=== PATIENT | female | born 1960 | race Caucasian/White ===

== ENCOUNTER 2018-05-17 11:48 | Outpatient (CLI) | payer MEDICAID ==
--- NOTE | 2018-05-17 13:16 | XRAY Report ---
Procedure Date: 05/17/2018 Accession Number: [id number] / [id number] Procedure: XR - Hip w/Pelvis 2-3V RT CPT Code: FULL RESULT: EXAM: Hip w/Pelvis 2-3V RT DATE: 05/17/2018 1:07 PM CLINICAL HISTORY: HIP PAIN RT COMPARISON: None. TECHNIQUE: 1 view of the pelvis and 1 view of the hip. FINDINGS: Bones: Normal. No fracture or bone lesion. Joints: Mild right hip osteoarthritis. Soft Tissues: Normal. No soft tissue swelling. IMPRESSION: Mild osteoarthritis. No evidence of acute fracture. RADIA
--- NOTE | 2018-05-17 13:16 | XRAY Report ---
Procedure Date: 05/17/2018 Accession Number: [id number] / [id number] Procedure: XR - Chest 2 View X-Ray CPT Code: 50746 FULL RESULT: EXAM: Chest 2 View X-Ray DATE: 05/17/2018 1:07 PM CLINICAL HISTORY: COUGH COMPARISON: 04/15/2015 TECHNIQUE: 2 views. FINDINGS: Lungs/Pleura: No focal opacities evident. No pneumothorax or pleural effusion. Normal volumes. Mediastinum: Heart and mediastinal contours are unremarkable. Other: None. IMPRESSION: Normal 2-view chest radiography. RADIA
== END 2018-05-17 11:49 | disposition home or self-care (01) ==
LOC: DI 11:48
PROVIDERS: ATTEND Physician Assistant Medical
DX: M25.551 Pain in right hip (principal); M16.11 Unilateral primary osteoarthritis, right hip; R05 Cough
CPT/HCPCS: 71046

== ENCOUNTER 2018-06-01 12:49 | Outpatient (CLI) | payer MEDICAID ==
--- NOTE | 2018-06-04 15:45 | Mammography Report ---
Procedure Date: 06/01/2018 Accession Number: [id number] / [id number] Procedure: TRU - Screening Mammo Dig Bilat CPT Code: FULL RESULT: EXAM: Screening Mammo Dig Bilat DATE: 06/01/2018 1:21 PM CLINICAL HISTORY: 57-year-old female with history of early menses and prior history of benign left breast biopsy in 2002 presents for screening. TECHNIQUE: Bilateral CC and MLO views were obtained. COMPARISON: 10/16/2014, 08/20/2013, 04/27/2010, 01/29/2009. FINDINGS: The breasts demonstrate diffuse fatty replacement bilaterally. Bilateral typically benign coarse calcifications and typically benign vascular calcifications are noted. Surgical clips are seen projecting over the left breast, benign finding. No suspicious masses, clustered microcalcifications, or regions of architectural distortion are identified. IMPRESSION: Benign findings RECOMMENDATION: Routine annual screening unless otherwise clinically indicated. BIRADS CATEGORY 2: Benign findings STANDARD QUALIFYING STATEMENTS: 1. This examination was reviewed with the aid of Computer-Aided Detection (CAD). 2. A negative or benign imaging report should not delay biopsy if clinically suspicious findings are present. Consider surgical consultation if warrented. More than 5% of cancers are not identified by imaging. 3. Dense breasts may obscure an underlying neoplasm.
== END 2018-06-01 12:50 | disposition home or self-care (01) ==
LOC: DI 12:49
PROVIDERS: ATTEND Physician Assistant Medical
DX: Z12.31 Encounter for screening mammogram for malignant neoplasm of breast (principal)
CPT/HCPCS: 77067

== ENCOUNTER 2018-06-01 12:50 | Outpatient (CLI) | payer MEDICAID ==
--- NOTE | 2018-06-01 16:35 | DEXA Report ---
Procedure Date: 06/01/2018 Accession Number: [id number] / [id number] Procedure: DEX - Dexa Spine and/or Hip CPT Code: FULL RESULT: EXAM: Dexa Spine and/or Hip DATE: 06/01/2018 1:43 PM CLINICAL HISTORY: ENC FOR SCREENING FOR OSTEOPOROSIS TECHNIQUE: Dual energy x-ray absorptiometry (DXA) was performed on a [employer] System. Regions measured are the AP Spine, femoral neck, and if needed forearm. COMPARISON: None. In accordance with the International Society for Clinical Densitometry (ISCD) guidelines, data from previous exams may be reanalyzed using current recommendations and techniques. This is done to allow a more accurate basis for comparison with the current study. FINDINGS: The data for the lumbar spine is as follows: BMD (g/cm/cm) T-SCORE Z-SCORE REGION L1 1.177 0.4 0.4 L2 1.334 1.1 1.1 L3 1.191 -0.1 -0.1 L4 1.070 -1.1 -1.1 TOTAL 1.190 0.1 0.1 NOTE: All evaluable vertebrae are used for classification The data for the hip is as follows: BMD (g/cm/cm) T-SCORE Z-SCORE REGION Neck 0.805 -1.7 -1.2 TOTAL 0.887 -1.0 -0.9 NOTE: The femoral neck or total proximal femur, whichever is lowest, is used for classification. Please note that osteopenia by T score is identified in the femoral neck only. IMPRESSION: THE WHO CLASSIFICATION BASED ON THE INTERNATIONAL REFERENCE STANDARD IS OSTEOPENIA. THE FRACTURE RISK IS INCREASED. RECOMMENDATION: Patients with diagnosis of osteoporosis or osteopenia should have regular bone mineral density assessment. For those eligible for Medicare, routine testing is allowed once every 2 years. Testing frequency can be increased for patients who have rapidly progressing disease or for those who are receiving medical therapy to restore bone mass. COMMENT: World Health Organization (WHO) definitions for osteoporosis and osteopenia: NORMAL BMD: T-score at -1.0 or higher, fracture risk is low OSTEOPENIA BMD: T-score between -1.0 and -2.5, fracture risk is increased. OSTEOPOROSIS BMD: T-score at -2.5 or lower, fracture risk is high. National Osteoporosis Foundation recommends: 1. Obtain adequate dietary calcium (at least 1200 mg per day) and vitamin D (400-800 international units per day). 2. Participate, as appropriate, in regular weightbearing and muscle-strengthening exercise. 3. Avoid tobacco use and reduce alcohol and caffeine intake. 4. For more detailed information see the website at www.NOF.org.
== END 2018-06-01 12:51 | disposition home or self-care (01) ==
LOC: DI 12:50
PROVIDERS: ATTEND Physician Assistant Medical
DX: Z13.820 Encounter for screening for osteoporosis (principal); M85.88 Other specified disorders of bone density and structure, other site
CPT/HCPCS: 77080

== ENCOUNTER 2018-06-06 12:55 | Outpatient (CLI) | payer MEDICAID ==
--- NOTE | 2018-06-06 15:23 | Ultrasound Report ---
Procedure Date: 06/06/2018 Accession Number: [id number] / [id number] Procedure: US - Carotid Doppler Complete CPT Code: FULL RESULT: EXAM: Carotid Doppler Complete DATE: 06/06/2018 3:01 PM CLINICAL HISTORY: CAROTID ARTERY STENOSIS COMPARISON: 05/09/2014. TECHNIQUE: Real-time sonographic vascular imaging was performed by the worm farmer through the carotid arterial system with a linear transducer utilizing color-flow, Doppler flow and spectral analysis. Multiple bilingual sales representative static images were saved for review. FINDINGS: Right carotid system: A mild amount of plaque is seen in the proximal internal carotid artery by the bulb by grayscale ultrasound. There is mild intimal thickening throughout the carotid system. With the exception of likely mild narrowing of the distal right internal carotid artery, there is no hemodynamically significant stenosis with peak systolic velocities in centimeters per second as below. Expected low resistance arterial waveforms are seen throughout the system. Right common carotid (proximal, distal): 92, 70 Right external carotid artery: 83 Right carotid bulb: 38 Right internal carotid artery (proximal, mid, distal): 53, 65, 134 Antegrade flow is detected in the right vertebral artery. Please note that there is tortuosity in the distal right internal carotid artery. This likely artificially raises the impression of stenosis in the distal right internal carotid artery. Left carotid system: Mild intimal thickening and subjectively mild less than 50% plaque is seen in the left common carotid artery. There is no hemodynamically significant stenosis in the left common carotid system with peak systolic velocities in centimeters per second as below. Expected low resistance arterial waveforms are seen throughout the system. Left common carotid artery (proximal, distal): 77, 71 Left external carotid artery: 90 Left carotid bulb: 58 Left internal carotid artery (proximal, mid, distal): 67, 48, 68 Antegrade flow is seen in the left vertebral artery. IMPRESSION: Approximately 50% narrowing of the distal right internal carotid artery. Normal left internal carotid artery. Validated velocity measurements with angiographic measurements and velocity criteria are extrapolated from diameter data as defined by the Society of Radiologists in Ultrasound Consensus Conference Radiology 2003; 229;340-346. RADIA
== END 2018-06-06 12:56 | disposition home or self-care (01) ==
LOC: DI 12:55
PROVIDERS: ATTEND Physician Assistant Medical
DX: I65.21 Occlusion and stenosis of right carotid artery (principal)
CPT/HCPCS: 93880

== ENCOUNTER 2019-08-06 09:16 | Outpatient (CLI) | payer MEDICAID ==
--- NOTE | 2019-08-06 15:32 | XRAY Report ---
Reason: CERVICAL RADICULOPATHY, LUMBAR RADICULOPATHY Procedure Date: 08/06/2019 Accession Number: [id number] / [id number] Procedure: XRN - Cervical Spine 2 View CPT Code: FULL RESULT: EXAM: CERVICAL SPINE RADIOGRAPHY EXAM DATE: 08/06/2019 01:17 PM. CLINICAL HISTORY: Cervical radiculopathy, lumbar radiculopathy. COMPARISONS: LUMBAR SPINE 2 VIEW 05/24/2018 1:51 PM. TECHNIQUE: 3 views. FINDINGS: Alignment: Normal. No spondylolisthesis or scoliosis. Bones: The cervical vertebral bodies and posterior elements are well visualized from the skull base through C5-C6. No fractures or bone lesions. Disks: There is mild multilevel narrowing of the disk space heights, most pronounced at C4-C5 and C5-C6. Facets: Frontal view is suggestive of mild multilevel facet arthropathy with lateral mass hypertrophy. Soft Tissues: Normal. No prevertebral soft tissue swelling. The visualized lung apices are clear. IMPRESSION: Degenerative changes. If clinical examination is consistent with nerve root compression, MRI would be appropriate. RADIA
--- NOTE | 2019-08-09 14:10 | XRAY Report ---
Reason: CERVICAL RADICULOPATHY, LUMBAR RADICULOPATHY Procedure Date: 08/06/2019 Accession Number: [id number] / [id number] Procedure: XRN - Lumbar Spine 2 View CPT Code: FULL RESULT: EXAM: LUMBOSACRAL SPINE RADIOGRAPHY EXAM DATE: 08/06/2019 01:25 PM. CLINICAL HISTORY: Cervical radiculopathy, lumbar radiculopathy. COMPARISONS: CERVICAL SPINE 2 VIEW 08/06/2019 1:17 PM. TECHNIQUE: 3 views. FINDINGS: Examination is limited by underpenetration. Alignment: Normal. No spondylolisthesis or scoliosis. Bones: Five [id number] lumbar vertebral bodies are present. No fractures or bone lesions. Disks: Disk space heights are generally preserved with the exception of L5-S1, where there is loss of height and sclerosis at the endplate. Facets: There is moderate facet arthropathy at L5-S1 with question of irregularity about the pars interarticularis. No listhesis is detected. Sacroiliac Joints: Unremarkable. Soft Tissues: Normal. The visualized bowel gas pattern is normal. IMPRESSION: Lower lumbar spine degenerative changes potentially due to pars interarticularis defect as described. RADIA
== END 2019-08-06 09:17 | disposition home or self-care (01) ==
LOC: DI.N 09:16
PROVIDERS: ATTEND Physician Assistant Medical
DX: M50.121 Cervical disc disorder at C4-C5 level with radiculopathy (principal); M51.17 Intervertebral disc disorders with radiculopathy, lumbosacral region; M47.27 Other spondylosis with radiculopathy, lumbosacral region
CPT/HCPCS: 72040; 72100

== ENCOUNTER 2019-08-30 09:45 | Outpatient (CLI) | payer MEDICAID ==
[2019-08-30 19:18] LABS: H. PYLORIS ANTIGEN STL NEGATIVE (Negative)
== END 2019-08-30 23:59 | disposition home or self-care (01) ==
LOC: LAB.R 09:45
PROVIDERS: ATTEND Physician Assistant Medical
DX: R19.7 Diarrhea, unspecified (principal)
CPT/HCPCS: 81599; 83630; 87045; 87046; 87177; 87209; 87338; 87493

== ENCOUNTER 2020-01-22 12:21 | Outpatient (CLI) | payer MEDICAID ==
--- NOTE | 2020-01-23 09:02 | Mammography Report ---
Reason: ROUTINE MAMMO Procedure Date: 01/22/2020 Accession Number: [id number] / [id number] Procedure: MGN - Screening Mammo w/Teo CPT Code: Final Report FULL RESULT: EXAM: Screening Mammo w/Teo DATE: 01/22/2020 1:10 PM CLINICAL HISTORY: Screening encounter. History of early menses. History of benign left breast biopsy in 2002. TECHNIQUE: (B) - Bilateral CC, laterally exaggerated CC, MLO views were obtained. COMPARISON: 06/01/2018 through 04/27/2010. PARENCHYMAL PATTERN: (A) - The breast(s) demonstrate(s) scattered fibroglandular densities. FINDINGS: Postsurgical changes in the left breast are stable. Typically benign vascular and coarse calcifications are redemonstrated. There are no suspicious masses, calcifications, or areas of distortion. IMPRESSION: Benign findings. BI-RADS category 2. RECOMMENDATION: (ANNUAL) - Recommend routine annual screening mammography. BI-RADS CATEGORY: (2) - Benign Findings. STANDARD QUALIFYING STATEMENTS: 1. This examination was not reviewed with the aid of Computer-Aided Detection (CAD). 2. A negative or benign imaging report should not preclude biopsy if clinically suspicious findings are present. 3. Dense breasts may obscure an underlying neoplasm. 4. This examination was reviewed with the aid of 3D breast imaging (tomosynthesis).
== END 2020-01-22 12:22 | disposition home or self-care (01) ==
LOC: DI.N 12:21
DX: Z12.31 Encounter for screening mammogram for malignant neoplasm of breast (principal)
CPT/HCPCS: 77063; 77067

== ENCOUNTER 2020-03-04 08:13 | Outpatient (CLI) | payer MEDICAID ==
--- NOTE | 2020-03-04 11:55 | Ultrasound Report ---
Reason: ABDOMINAL PAIN,RUQ Procedure Date: 03/04/2020 Accession Number: [id number] / [id number] Procedure: US - Chest CPT Code: Final Report FULL RESULT: EXAM: LIMITED RIGHT UPPER QUADRANT ULTRASOUND EXAM DATE: 03/04/2020 08:41 AM. CLINICAL HISTORY: Abdominal pain, right upper quadrant. COMPARISON: ABDOMEN/PELVIS W/O 09/12/2013 4:43 PM. TECHNIQUE: Focused ultrasound performed of the area of palpable concern in the right upper quadrant of the abdomen. FINDINGS: At the area of concern, there is a 6.3 x 3.4 x 1.5 cm solid-appearing mass, located cephalad to the gallbladder scar. Internal vascularity is seen. This is located within the deep subcutaneous tissue superficial to the abdominal wall musculature. This is in the same general location as a 2.6 x 5.0 x 10.3 cm fluid collection on remote comparison CT, although this finding had a uniform fluid-like appearance on the remote CT.. IMPRESSION: Solid-appearing mass in the deep subcutaneous tissue at the palpable area of concern. Although a fluid collection was seen on remote comparison at this location, the heterogeneity in current appearance internal vascularity suggest that this finding is indeterminate. Recommend consideration of histologic evaluation. RADIA
== END 2020-03-04 08:14 | disposition home or self-care (01) ==
LOC: DI 08:13
PROVIDERS: ATTEND Physician Assistant Medical
DX: R22.2 Localized swelling, mass and lump, trunk (principal)
CPT/HCPCS: 76604

== ENCOUNTER 2020-06-27 01:03 | Emergency (ER) | payer MEDICAID ==
--- NOTE | 2020-06-27 01:08 | ED Physician Documentation ---
History of Present Illness - Stated complaint Stated Complaint: F - History obtained from History obtained from: Patient (59-year-old female with a history of urinary tract infections presents with dysuria and burning on urination without fevers or flank pain.) Review of Systems Constitutional: reports: Reviewed and negative Eyes: reports: Reviewed and negative Ears: reports: Reviewed and negative Nose: reports: Reviewed and negative Throat: reports: Reviewed and negative Cardiac: reports: Reviewed and negative Respiratory: reports: Reviewed and negative GI: reports: Reviewed and negative : reports: Dysuria Skin: reports: Reviewed and negative Musculoskeletal: reports: Reviewed and negative Neurologic: reports: Reviewed and negative Psychiatric: reports: Reviewed and negative Endocrine: reports: Reviewed and negative Immunocompromised: reports: Reviewed and negative PD PAST MEDICAL HISTORY - Past Medical History Cardiovascular: Hypertension, High cholesterol Respiratory: Shortness of breath, Sleep apnea Neuro: None Endocrine/Autoimmune: Type 2 diabetes GI: Chronic diarrhea, Chronic constipation : None Psych: Other Musculoskeletal: Osteoarthritis, Fibromyalgia, Osteopenia Derm: None - Past Surgical History Past Surgical History: Yes General: Cholecystectomy /PAINTER TUMBLING BARREL: section, Hysterectomy HEENT: Other - Present Medications Home Medications: Ambulatory Orders Medication Instructions Recorded Confirmed Cholecalciferol (Vitamin D3) 10,000 unit PO ONCEDAILY 05/11/13 07/16/19 [Vitamin D] Insulin Glargine,Hum.rec.anlog 70 unit SQ DAILY 05/11/13 07/16/19 [Lantus] Insulin Lispro [Humalog] 5 - 10 unit SQ TID 05/11/13 07/16/19 glipiZIDE [Glucotrol] 10 mg PO BID 05/11/13 07/16/19 Lisinopril [Zestril] 10 mg PO BID 09/12/13 07/16/19 Promethazine [Phenergan] 25 mg PO Q6H PRN #20 tab 09/12/13 07/16/19 Rosuvastatin Calcium [Crestor] 5 mg PO DAILY 04/15/15 07/16/19 carvediloL [Carvedilol] 6.25 mg PO BID 04/15/15 07/16/19 Empagliflozin [Jardiance] 25 mg PO DAILY 06/08/19 07/16/19 Furosemide [Lasix] 80 mg PO DAILY 06/08/19 07/16/19 Gabapentin 600 mg PO TID 06/08/19 07/16/19 Potassium Chloride 10 meq PO DAILY 06/08/19 07/16/19 Aspirin [Aspirin EC] 162 mg PO DAILY 07/16/19 07/16/19 Calcium Carbonate/Vitamin D3 1 tab PO DAILY 07/16/19 07/16/19 [Calcium 500-Vit D3 400 Chew Tb] Fluticasone [Flonase] 1 sprays [place] BID 07/16/19 07/16/19 Ipratropium [place] 15 ml NS BID 07/16/19 07/16/19 Meclizine HCl [Motion Sickness 25 mg PO TID PRN 07/16/19 07/16/19 Relief] Multivitamin [Multivitamins] 1 each PO DAILY 07/16/19 07/16/19 Phenazopyridine HCl [Pyridium] 100 mg PO DAILY PRN 07/16/19 07/16/19 Cephalexin [Keflex] 500 mg PO BID 7 Days #14 capsule 06/27/20 - Allergies Allergies/Adverse Reactions: Allergies Allergy/AdvReac Type Severity Reaction Status Date / Time ciprofloxacin [From Cipro] Allergy Intermediate Rash Verified 06/27/20 01:18 iodine Allergy Mild Rash Verified 06/27/20 01:18 alendronate sodium Allergy Unknown Verified 06/27/20 01:18 [From Fosamax] amoxicillin [From Augmentin] Allergy Unknown Verified 06/27/20 01:18 clavulanic acid Allergy Unknown Verified 06/27/20 01:18 [From Augmentin] liraglutide [From Victoza] Allergy Unknown Verified 06/27/20 01:18 nitrofurantoin Allergy Unknown Verified 06/27/20 01:18 [From Macrobid] Ajjasar-Uvg-Lyp Reductase Allergy Unknown Verified 06/27/20 01:18 Inhibitor azithromycin [From Zithromax] AdvReac Intermediate Emesis Verified 06/27/20 01:18 codeine [Codeine] AdvReac Intermediate Nausea Verified 06/27/20 01:18 metformin HCl * AdvReac Intermediate Emesis Verified 06/27/20 01:18 [From Glucophage] iv dye Allergy Unknown Uncoded 06/27/20 01:18 - Social History Does the pt smoke?: No Smoking Status: Former smoker Does the pt drink ETOH?: No Does the pt have substance abuse?: No - Immunizations Immunizations are current?: Yes PD ED PE NORMAL - Vitals Vital signs reviewed: Yes - General General: Alert and oriented X 3, No acute distress, Well developed/nourished - HEENT HEENT: PERRL - Neck Neck: Supple, no meningeal sign - Cardiac Cardiac: RRR, No murmur, Strong equal pulses - Respiratory Respiratory: No respiratory distress, Clear bilaterally - Abdomen Abdomen: Normal bowel sounds, Soft, Non tender, Non distended, No organomegaly - Back Back: No CVA TTP, No spinal TTP - Derm Derm: Normal color, Warm and dry, No rash - Extremities Extremities: No deformity - Neuro Neuro: Alert and oriented X 3, 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 CLOUDY Urine pH 6.0 Ur Specific [place] 1.015 Urine Protein 100 H Urine Glucose (UA) >=1000 H Urine Ketones NEGATIVE Urine Occult Blood MODERATE H Urine Nitrite NEGATIVE Urine Bilirubin NEGATIVE Urine Urobilinogen 0.2 (NORMAL) Ur Leukocyte Esterase SMALL H Ur Microscopic Review INDICATED Urine Culture Comments Not Reportable PD MEDICAL DECISION MAKING - ED course Complexity details: considered differential (History and urinalysis are consistent with acute cystitis patient has been treated previously with Keflex will initiate treatment with Keflex.) Departure - Departure Disposition: 01 Home, Self Care Clinical Impression: Cystitis Condition: Stable Instructions: ED UTI Cystitis Female Follow-Up: Ronit Samano PA-C [Primary Care Provider] - Tomorrow Prescriptions: Cephalexin [Keflex] 500 mg PO BID 7 Days #14 capsule Comments: Take antibiotics as directed. Follow-up with your primary care provider on Monday for a recheck.
[2020-06-27 01:19] LABS: BILIRUBIN,URINE NEGATIVE (NEGATIVE); GLUCOSE, URINE (UA) >=1000 mg/dL (NEGATIVE); KETONES,URINE (UA) NEGATIVE (NEGATIVE); LEUKOCYTE ESTERASE, URINE SMALL (NEGATIVE); NITRITE,URINE NEGATIVE (NEGATIVE); OCCULT BLOOD,URINE MODERATE (NEGATIVE); PROTEIN,URINE 100 mg/dL (NEGATIVE); UROBILINOGEN,URINE 0.2 (NORMAL) E.U./dL (NORMAL)
[2020-06-27 01:22] LABS: CLARITY,URINE SL. CLOUDY (CLEAR)
[2020-06-27] MEDS ORDERED: cephALEXin 250 MG CAPSULE PO STA (01:30)
[2020-06-27 01:33] LABS: BACTERIA,URINE Few /HPF (None Seen); SQUAMOUS EPITHELIAL CELL,UR RARE Squamous (<= Few); YEAST,URINE PRESENT
[2020-06-27 01:40] VITALS: BP 137/76
== END 2020-06-27 01:39 | disposition home or self-care (01) ==
LOC: ED 01:03
DX: N30.90 Cystitis, unspecified without hematuria (principal); I10 Essential (primary) hypertension; E11.9 Type 2 diabetes mellitus without complications; Z79.4 Long term (current) use of insulin; Z79.82 Long term (current) use of aspirin; Z87.891 Personal history of nicotine dependence
CPT/HCPCS: 81001; 87086; 99283; A9270; 81003

== ENCOUNTER 2020-07-01 08:00 | Outpatient (CLI) | payer MEDICAID | END 2020-07-01 23:59 | disposition home or self-care (01) | LOC: LAB.R 08:00 | PROVIDERS: ATTEND Family Medicine | DX: N39.0 Urinary tract infection, site not specified (principal) | CPT/HCPCS: 87086 ==

== ENCOUNTER 2020-07-20 10:48 | Outpatient (CLI) | payer MEDICAID | END 2020-07-20 10:49 | disposition EMS.NT | LOC: EMS 10:48 | PROVIDERS: ATTEND Surgery | DX: M54.2 Cervicalgia (principal); V49.40XA Driver injured in collision with unspecified motor vehicles in traffic accident, initial encounter; Y92.414 Local residential or business street as the place of occurrence of the external cause ==

== ENCOUNTER 2020-07-23 12:28 | Outpatient (CLI) | payer MEDICAID ==
--- NOTE | 2020-07-23 16:12 | XRAY Report ---
PROCEDURE: Cervical Spine 2 View INDICATIONS: CERVICAL RADICULOPATHY TECHNIQUE: 4 view(s) of the cervical spine were acquired. COMPARISON: None. FINDINGS: Bones: No fractures or dislocations to the C7-T1 level. There is straightening of normal cervical l ordosis with degenerative endplate changes noted at C4-5 and C5-6 levels. The lateral masses of C1 ap pear intact on the odontoid view. No suspicious bony lesions. Soft tissues: No prevertebral soft tissue swelling. IMPRESSION: Degenerative disc disease at C4-5 and C5-6 levels. No compression fracture or spondyloli sthesis. Reviewed by: Catracho Freeman MD on 07/23/2020 4:10 PM PDT Approved by: Catracho Freeman MD on 07/23/2020 4:10 PM PDT Station ID: [id number]
== END 2020-07-23 12:29 | disposition home or self-care (01) ==
LOC: DI 12:28
PROVIDERS: ATTEND Family Medicine
DX: M50.321 Other cervical disc degeneration at C4-C5 level (principal)
CPT/HCPCS: 72040

== ENCOUNTER 2020-08-04 16:45 | Outpatient (CLI) | payer MEDICAID | END 2020-08-04 16:46 | disposition critical access hospital (66) | LOC: EMS 16:45 | PROVIDERS: ATTEND Surgery | DX: R41.82 Altered mental status, unspecified (principal) | CPT/HCPCS: A0425; A0427; A0999 ==

== ENCOUNTER 2020-08-04 17:06 | Emergency (ER) | payer MEDICAID ==
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
[2020-08-04] MEDS ORDERED: DEXTROSE 10% 1,000 ML IV STA (17:20)
[2020-08-04] MEDS ORDERED: KETOROLAC 15 MG/ML VIAL IVP STA (17:22)
[2020-08-04 17:40] LABS: BASOPHILS # (AUTO) 0.1 10^3/uL (0.0-0.1); BASOPHILS % (AUTO) 0.7 %; EOSINOPHILS # (AUTO) 0.1 10^3/uL (0.0-0.7); EOSINOPHILS % (AUTO) 1.7 %; HGB - HEMOGLOBIN 12.2 g/dL (12.0-16.0); LYMPHOCYTES # (AUTO) 1.3 10^3/uL (1.5-3.5); LYMPHOCYTES % (AUTO) 17.1 %; MEAN CORPUSCULAR HEMOGLOBIN 32.8 pg (27.0-31.0); MEAN CORPUSCULAR HGB CONC 33.5 g/dL (32.0-36.0); MEAN CORPUSCULAR VOLUME 97.8 fL (81.0-99.0); MEAN PLATELET VOLUME 9.6 fL (7.9-10.8); MONOCYTES # (AUTO) 0.5 10^3/uL (0.0-1.0); NEUTROPHILS # (AUTO) 5.6 10^3/uL (1.5-6.6); NEUTROPHILS % (AUTO) 73.2 %; PLT - PLATELET COUNT 154 10^3/uL (130-450); RED BLOOD COUNT 3.72 10^6/uL (4.20-5.40); RED CELL DISTRIBUTION WIDTH 12.6 % (12.0-15.0); WHITE BLOOD COUNT 7.6 x10^3/uL (4.8-10.8)
--- NOTE | 2020-08-04 17:49 | XRAY Report ---
PROCEDURE: Chest 1 View X-Ray INDICATIONS: cough TECHNIQUE: One view of the chest was acquired. COMPARISON: None available FINDINGS: Surgical changes and devices: Left breast lobectomy change. Surgical clips in the gallbladder fossa. Lungs and pleura: No pleural effusions or pneumothorax. Lungs demonstrate bilateral perihilar peribr onchial thickening with mild alveolar opacity in the infrahilar region on the right. Mediastinum: Mediastinal contours appear normal. Heart size is mildly enlarged. Bones and chest wall: No suspicious bony lesions. Overlying soft tissues appear unremarkable. IMPRESSION: 1. Mild cardiomegaly. 2. Changes of mild bronchitis, acute or chronic. Reviewed by: Paula Miller MD on 08/04/2020 4:47 PM AKDT Approved by: Paula Miller MD on 08/04/2020 4:47 PM AKCATA Station ID: [id number]
[2020-08-04 17:55] LABS: ALBUMIN 3.9 g/dL (3.2-5.5); ALBUMIN/GLOBULIN RATIO 1.2 (1.0-2.2); ALKALINE PHOSPHATASE 33 IU/L (42-121); ALT ALANINE AMINOTRANSFERASE 28 IU/L (10-60); AST ASPARTATE AMINOTRANSFERASE 28 IU/L (10-42); BILIRUBIN,TOTAL 0.5 mg/dL (0.2-1.0); BUN - BLOOD UREA NITROGEN 23 mg/dL (6-20); CALCIUM 9.5 mg/dL (8.5-10.3); CARBON DIOXIDE - CO2 29 mmol/L (21-32); CHLORIDE 98 mmol/L (101-111); CREATININE 0.7 mg/dL (0.4-1.0); GLUCOSE 84 mg/dL (70-100); LIPASE 30 U/L (22-51); SODIUM 138 mmol/L (135-145); TOTAL PROTEIN 7.2 g/dL (6.7-8.2)
--- NOTE | 2020-08-04 17:59 | CT Report ---
PROCEDURE: HEAD WO INDICATIONS: headache worse today; feels foggy TECHNIQUE: Noncontrast 4.5 mm thick angled axial sections acquired from the foramen magnum to the vertex. For r adiation dose reduction, the following was used: automated exposure control, adjustment of mA and/or kV according to patient size. COMPARISON: None FINDINGS: Image quality: Excellent. CSF spaces: Basal cisterns are patent. No extra-axial fluid collections. The ventricles are symmet charo in size and shape. Brain: No intracranial bleeds or masses. There is cerebral volume loss for age, with resultant vent ricular and sulcal prominence. There are periventricular and deep white matter chronic small vessel ischemic changes. There is intracranial internal carotid artery atherosclerosis. Skull and face: Calvarium and visualized facial bones appear intact, without suspicious lesions. Inj ection involving the left ocular globe. Sinuses: Visualized sinuses and mastoids are clear. IMPRESSION: No acute intracranial disease process. Reviewed by: Lucero Fontaine MD, PhD on 08/04/2020 5:58 PM PDT Approved by: Lucero Fontaine MD, PhD on 08/04/2020 5:58 PM PDT Station ID: [id number]
[2020-08-04 18:15] LABS: BILIRUBIN,URINE NEGATIVE (NEGATIVE); GLUCOSE, URINE (UA) NEGATIVE (NEGATIVE); KETONES,URINE (UA) NEGATIVE (NEGATIVE); LEUKOCYTE ESTERASE, URINE SMALL (NEGATIVE); NITRITE,URINE NEGATIVE (NEGATIVE); OCCULT BLOOD,URINE TRACE-INTA (NEGATIVE); PH,URINE 5.5 PH (5.0-7.5); PROTEIN,URINE NEGATIVE (NEGATIVE); UROBILINOGEN,URINE 0.2 (NORMAL) E.U./dL (NORMAL)
[2020-08-04 18:17] LABS: CLARITY,URINE HAZY (CLEAR)
[2020-08-04 18:27] LABS: BACTERIA,URINE Rare /HPF (None Seen); RBC,URINE 0-5 /HPF (0-5); SQUAMOUS EPITHELIAL CELL,UR RARE Squamous (<= Few); WBC CLUMPS,URINE PRESENT
[2020-08-04] MEDS ORDERED: cefTRIAXone 1 GM VIAL IVP STA (18:59)
[2020-08-04] MEDS ORDERED: DOXYCYCLINE 100 MG TABLET PO STA (18:59)
[2020-08-04 21:38] VITALS: BP 136/82
== END 2020-08-04 21:37 | disposition home or self-care (01) ==
LOC: EDUNIT# → ED 17:06
DX: E16.2 Hypoglycemia, unspecified (principal); J20.9 Acute bronchitis, unspecified; R51 Headache; E11.9 Type 2 diabetes mellitus without complications; Z79.4 Long term (current) use of insulin; R60.9 Edema, unspecified; Z79.82 Long term (current) use of aspirin
CPT/HCPCS: 36415; 70450; 71045; 80053; 80320; 81001; 83605; 83690; 83735; 84443; 85025; 87086; 93005; 96365; 96375; 99284; A9270; 81003

== ENCOUNTER 2020-08-25 19:25 | Emergency (ER) | payer MEDICAID ==
[2020-08-25] MEDS ORDERED: CLINDAMYCIN 150 MG CAPSULE PO STA (20:11)
[2020-08-25] MEDS ORDERED: BACITRACIN ZINC OINT 1 PACKET TOP STA (20:13)
--- NOTE | 2020-08-25 20:14 | ED Physician Documentation ---
History of Present Illness - Stated complaint Stated Complaint: LT CALF BLISTER - Chief complaint Chief Complaint: Wound - History obtained from History obtained from: Patient - History of Present Illness Timing: How many weeks ago (2+) - Additonal information Additional information: 59-year-old female presents to the emergency department for evaluation of a left calf wound. She reports that on August 07, 2020 she developed a very large blister on the back of her calf. The blister was ruptured and it drained clear fluid. She has been placing mupirocin on it. Patient states that she was on doxycycline for bronchitis for 1 week. That prescription ended August 11. Since then patient reports that the area on the back of her leg has gotten progressively larger and erythematous as well as tender to touch. She denies any fevers. She is a diabetic. Her blood sugars range from the 80s to the 190s Review of Systems Constitutional: reports: Reviewed and negative Ears: reports: Reviewed and negative Nose: reports: Reviewed and negative Cardiac: reports: Reviewed and negative Respiratory: reports: Reviewed and negative GI: reports: Reviewed and negative Skin: reports: Lesions (left posterior calf wound 5X4 cm.) PD PAST MEDICAL HISTORY - Past Medical History Cardiovascular: None Respiratory: None Neuro: None Endocrine/Autoimmune: Type 2 diabetes GI: None : None Psych: Other Musculoskeletal: Osteoarthritis, Fibromyalgia, Osteopenia Derm: None - Past Surgical History Past Surgical History: Yes General: 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, Hysterectomy HEENT: Other - Present Medications Home Medications: Ambulatory Orders Medication Instructions Recorded Confirmed Cholecalciferol (Vitamin D3) 10,000 unit PO ONCEDAILY 05/11/13 07/16/19 [Vitamin D] Insulin Glargine,Hum.rec.anlog 70 unit SQ DAILY 05/11/13 07/16/19 [Lantus] Insulin Lispro [Humalog] 5 - 10 unit SQ TID 05/11/13 07/16/19 glipiZIDE [Glucotrol] 10 mg PO BID 05/11/13 07/16/19 Lisinopril [Zestril] 10 mg PO BID 09/12/13 07/16/19 Promethazine [Phenergan] 25 mg PO Q6H PRN #20 tab 09/12/13 07/16/19 Rosuvastatin Calcium [Crestor] 5 mg PO DAILY 04/15/15 07/16/19 carvediloL [Carvedilol] 6.25 mg PO BID 04/15/15 07/16/19 Empagliflozin [Jardiance] 25 mg PO DAILY 06/08/19 07/16/19 Furosemide [Lasix] 80 mg PO DAILY 06/08/19 07/16/19 Gabapentin 600 mg PO TID 06/08/19 07/16/19 Potassium Chloride 10 meq PO DAILY 06/08/19 07/16/19 Aspirin [Aspirin EC] 162 mg PO DAILY 07/16/19 07/16/19 Calcium Carbonate/Vitamin D3 1 tab PO DAILY 07/16/19 07/16/19 [Calcium 500-Vit D3 400 Chew Tb] Fluticasone [Flonase] 1 sprays MARIA DEL CARMEN BID 07/16/19 07/16/19 Ipratropium [place] 15 ml NS BID 07/16/19 07/16/19 Meclizine HCl [Motion Sickness 25 mg PO TID PRN 07/16/19 07/16/19 Relief] Multivitamin [Multivitamins] 1 each PO DAILY 07/16/19 07/16/19 Phenazopyridine HCl [Pyridium] 100 mg PO DAILY PRN 07/16/19 07/16/19 Cephalexin [Keflex] 500 mg PO BID 7 Days #14 capsule 06/27/20 Doxycycline Hyclate 100 mg PO BID #14 tablet 08/04/20 Clindamycin HCl [Clindamycin 150MG 450 mg PO TID 10 Days #90 capsule 08/25/20 CAP] - Allergies Allergies/Adverse Reactions: Allergies Allergy/AdvReac Type Severity Reaction Status Date / Time ciprofloxacin [From Cipro] Allergy Intermediate Rash Verified 08/25/20 19:48 iodine Allergy Mild Rash Verified 08/25/20 19:48 alendronate sodium Allergy Unknown Verified 08/25/20 19:48 [From Fosamax] amoxicillin [From Augmentin] Allergy Unknown Verified 08/25/20 19:48 clavulanic acid Allergy Unknown Verified 08/25/20 19:48 [From Augmentin] liraglutide [From Victoza] Allergy Unknown Verified 08/25/20 19:48 nitrofurantoin Allergy Unknown Verified 08/25/20 19:48 [From Macrobid] Alpsfls-Puf-Qov Reductase Allergy Unknown Verified 08/25/20 19:48 Inhibitor azithromycin [From Zithromax] AdvReac Intermediate Emesis Verified 08/25/20 19:48 codeine [Codeine] AdvReac Intermediate Nausea Verified 08/25/20 19:48 metformin HCl * AdvReac Intermediate Emesis Verified 08/25/20 19:48 [From Glucophage] iv dye Allergy Unknown Uncoded 08/25/20 19:48 - Social History Does the pt smoke?: No Smoking Status: Former smoker Does the pt drink ETOH?: No Does the pt have substance abuse?: No - Immunizations Immunizations are current?: Yes - POLST Patient has POLST: No PD ED PE EXPANDED - General General: Alert, No acute distress, Other (obese) - Cardiac Cardiac: Regular Rate, Regular Rhythm, Pedal strong equal, Cap refill < 2 sec. No: Radial strong equal - Respiratory Respiratory: Clear to ausultation miranda. No: Distress, Labored - Abdomen Abdomen: Normal Bowel sounds. No: Tender to palpation - Extremities Extremities: Left leg (4X5 cm area sueprficial ulceration/epidermal loss. Surrounding erythema. Both calfs equally swollen) Results - Vitals Vitals: Vital Signs - 24 hr 08/25/20 19:45 Temperature 36.5 C Heart Rate 78 Respiratory 17 Rate Blood Pressure 182/65 H O2 Saturation 96 Oxygen O2 Source Room air PD MEDICAL DECISION MAKING - ED course Complexity details: reviewed results, re-evaluated patient, considered differential, d/w patient ED course: 59-year-old diabetic female presents to the emergency department for a 4 x 5 cm circular ulceration on the back of her left calf that initially began August 07 as a large fluid-filled blister. She did complete a course of doxycycline August 11. However over the last 3 to 4 days the area of erythema surrounding the ulceration has gotten much larger and her leg is more tender. She does have multiple antibiotic allergies. I will start her on clindamycin 450 mg 3 times a day for the next 10 days. Patient is to ask for a wound referral through her primary care provider. She was advised that if the erythema does not improve markedly over the next 48 hours to return to the ER for a second look. 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 insulin use: unspecified skilled nursing insulin use status Diabetes mellitus complication status: with skin complications Diabetes mellitus complication detail: with other skin ulcer Qualified Code(s): E11.622 - Type 2 diabetes mellitus with other skin ulcer; L98.499 - Non-pressure chronic ulcer of skin of other sites with unspecified severity Condition: Stable Record reviewed to determine appropriate education?: Yes Instructions: Cellulitis Dc Prescriptions: Clindamycin HCl [Clindamycin 150MG CAP] 450 mg PO TID 10 Days #90 capsule Comments: Oxana the ulcer on the back of your leg certainly looks infected at this point. I have given you your first dose of clindamycin here in the emergency department. Tomorrow morning please fill the prescription and begin taking as directed. Please elevate your leg as much as you can at night to help with swelling. If despite the antibiotics you have increased redness, swelling pain or develop any fevers you must return to the emergency department.
[2020-08-25 20:53] VITALS: BP 161/74
[2020-08-25] MEDS ORDERED: HYDROcod/ACET 5/325 Prepack 4 PO STA (21:04)
== END 2020-08-25 21:10 | disposition home or self-care (01) ==
LOC: ED 19:25
DX: L03.116 Cellulitis of left lower limb (principal); E11.622 Type 2 diabetes mellitus with other skin ulcer; L97.229 Non-pressure chronic ulcer of left calf with unspecified severity; Z79.4 Long term (current) use of insulin; Z87.891 Personal history of nicotine dependence; E66.9 Obesity, unspecified
CPT/HCPCS: 87070; 87205; 99282; 99283; A9270

== ENCOUNTER 2020-09-16 16:51 | Outpatient (CLI) | payer MEDICAID ==
--- NOTE | 2020-09-17 08:53 | Ultrasound Report ---
PROCEDURE: Duplex Lwr Ext Arterial Bilat INDICATIONS: PERIPHERAL ARTERY DISEASE TECHNIQUE: Color and pulse Doppler interrogation was performed of both lower extremity arterial systems, with im age documentation. COMPARISON: FINDINGS: Right lower extremity: Common femoral artery: 101 cm/sec, with biphasic flow. Deep femoral artery: 74 cm/sec, with biphasic flow. Proximal superficial femoral artery: 132 cm/sec, with biphasic flow. Mid superficial femoral artery: 102 cm/sec, with biphasic flow. Distal superficial femoral artery: 104 cm/sec, with biphasic flow. Popliteal artery: 90 cm/sec, with biphasic flow. Posterior tibial artery: 106 cm/sec, with biphasic flow. Anterior tibial artery/dorsalis pedis: 109/95 cm/sec, with biphasic flow. Bowers-scale imaging description: Mixed mild plaque formation throughout the right lower extremity with no focal significant stenosis. Left lower extremity: Common femoral artery: 149 cm/sec, with biphasic flow. Deep femoral artery: 73 cm/sec, with biphasic flow. Proximal superficial femoral artery: 130 cm/sec, with triphasic flow. Mid superficial femoral artery: 129 cm/sec, with triphasic flow. Distal superficial femoral artery: 75 cm/sec, with biphasic flow. Popliteal artery: 228 cm/sec, with monophasic flow. Posterior tibial artery: 103 cm/sec, with biphasic flow. Anterior tibial artery/dorsalis pedis: 103/120 cm/sec, with triphasic flow. Bowers-scale imaging description: Moderate to severe stenosis secondary to atherosclerotic plaque in t he left popliteal artery and in the left profunda femoris IMPRESSION: Hemodynamically significant moderate to severe stenosis in the left popliteal artery. Hemodynamically significant moderate stenosis in the left profunda femoris near the origin. Mild to moderate narrowing in the right profunda femoris. Consider CT angiography of the abdomen and pelvis with runoff to the lower extremities to evaluate f or potential aortic or iliac inflow disease as well as to more fully characterize the lower extremity stenoses. Reviewed by: Maicol Palafox MD on 09/17/2020 8:51 AM PST Approved by: Maicol Palafox MD on 09/17/2020 8:51 AM PST Station ID: [id number]
== END 2020-09-16 16:52 | disposition home or self-care (01) ==
LOC: DI 16:51
PROVIDERS: ATTEND Family Medicine
DX: I70.202 Unspecified atherosclerosis of native arteries of extremities, left leg (principal); I70.201 Unspecified atherosclerosis of native arteries of extremities, right leg
CPT/HCPCS: 93925

== ENCOUNTER 2020-10-05 16:15 | Outpatient (CLI) | payer MEDICAID ==
[2020-10-05] MEDS ORDERED: IOVERSOL 320 100 ML VIAL IVP ONE ×2 (17:01→18:34)
--- NOTE | 2020-10-06 08:39 | CT Report ---
PROCEDURE: ANGIO ABD RUNOFF W/WO - B/L INDICATIONS: PERIPHERAL ARTERY DISEASE CONTRAST: IV CONTRAST: Optiray 320 ml: 140 PO CONTRAST: *NO PO CONTRAST TECHNIQUE: After the administration of intravenous contrast, 2 and 5 mm sections acquired from T12 to the feet, with optional delayed image acquisition from the knees to the feet. 3-dimensional maximum intensity projection (MIP) coronal and sagittal reformats, and/or 3-dimensional volume rendering reformatting w as then performed. For radiation dose reduction, the following was used: automated exposure control , adjustment of mA and/or kV according to patient size. COMPARISON: None. FINDINGS: Image quality: Excellent. Extravascular tissues: Lung bases are clear. Heart size is normal. Liver and spleen are normal in size and enhancement. Gallbladder is surgically absent Biliary system is non dilated. Pancreas enh ances normally. No adrenal nodules. Kidneys are normal in size and enhancement, without hydronephro sis. Non opacified bowel loops demonstrate normal wall thickness and enhancement. No free fluid or air. No retroperitoneal or mesenteric adenopathy. No ventral hernias. Bladder wall thickness is no rmal. Bladder is distended. Uterus is surgically absent. No inguinal hernias or adenopathy. No susp icious bony lesions. No vertebral body compression fractures. Abdominal aorta: Normal caliber. Mild atherosclerotic plaque. Moderate celiac stenosis. Mild SMA janusz notic disease. Mild to moderate HANNA stenosis. Patent renal arteries. Right lower extremity: Common iliac and external iliac are widely patent. Mild SFA disease without s tenosis. Popliteal is patent. Three-vessel runoff. Left lower extremity: Common iliac and external iliac are patent. Mild SFA disease without hemodynam ically significant stenosis. Focal moderate geniculate popliteal stenosis. Three-vessel runoff. IMPRESSION: 1. No evidence of aortoiliac stenotic disease. 2. Right lower extremity runoff demonstrates mild plaque without hemodynamically significant stenosis in 3 runoff vessels. 3. Left lower extremity runoff demonstrates a moderate, 50% today, popliteal stenosis. There is three -vessel runoff. No other hemodynamically significant stenoses. 4. Visceral vessels demonstrate moderate celiac stenosis, mild SMA stenotic disease, and mild to mode rate HANNA stenosis. Reviewed by: Bharat Villegas MD on 10/06/2020 8:38 AM RUST Approved by: Bharat Villegas MD on 10/06/2020 8:38 AM PST Station ID: [id number]
== END 2020-10-05 16:16 | disposition home or self-care (01) ==
LOC: LAB 16:15
PROVIDERS: ATTEND Family Medicine
DX: I73.9 Peripheral vascular disease, unspecified (principal)
CPT/HCPCS: 75635; 82565; Q9967; 36415

== ENCOUNTER 2020-10-09 11:40 | Outpatient (CLI) | payer MEDICAID ==
[2020-10-09 18:14] LABS: CREATININE,URINE 54.7 mg/dL; MICROALBUM/CREATININE RATIO,UR 345.5 ug/mg (<30.0); MICROALBUMIN,URINE 18.9 mg/dL (0-300.0)
[2020-10-09 18:31] LABS: CALCIUM 8.9 mg/dL (8.5-10.3); CREATININE 0.8 mg/dL (0.4-1.0)
[2020-10-09 20:52] LABS: HEMOGLOBIN A1c% 8.4 % (4.27-6.07)
== END 2020-10-09 11:41 | disposition home or self-care (01) ==
LOC: LAB.N 11:40
PROVIDERS: ATTEND Physician Assistant Medical
DX: E11.65 Type 2 diabetes mellitus with hyperglycemia (principal)
CPT/HCPCS: 36415; 80048; 82043; 82570; 83036

== ENCOUNTER 2020-10-14 08:00 | Outpatient (CLI) | payer MEDICAID ==
--- NOTE | 2020-10-14 15:04 | XRAY Report ---
PROCEDURE: Chest 2 View X-Ray INDICATIONS: GAMINO TECHNIQUE: 2 view(s) of the chest. COMPARISON: None. FINDINGS: Surgical changes and devices: None. Lungs and pleura: No pleural effusions or pneumothorax. Lungs are clear. Mediastinum: Mediastinal contours are normal. Heart size is normal. The aorta has atherosclerotic c alcifications. Bones and chest wall: No suspicious bony abnormalities. Soft tissues appear unremarkable. IMPRESSION: No acute cardiopulmonary abnormality. Reviewed by: Grant Newton on 10/14/2020 3:[address] [facility] Approved by: Grant Newton on 10/14/2020 3:[address] [facility] Station ID: [id number]
== END 2020-10-14 23:59 | disposition home or self-care (01) ==
LOC: DI.WCP 08:00
PROVIDERS: ATTEND Physician Assistant Medical
DX: R06.09 Other forms of dyspnea (principal)

== ENCOUNTER 2021-02-08 12:25 | Outpatient (CLI) | payer MEDICAID ==
--- NOTE | 2021-02-09 11:39 | Mammography Report ---
BILATERAL DIGITAL SCREENING MAMMOGRAM 3D/2D: 02/08/2021 CLINICAL: Routine screening. Comparison is made to exams dated: 01/22/2020 mammogram, 06/01/2018 mammogram, 10/16/2014 mammogram, mammogram, and 08/20/2013 ultrasound - [facility]. There are scattered fibr oglandular elements in both breasts. There are benign calcifications in both breasts. There also are benign vascular calcifications in lidia th breasts. Additionally, there are benign post operative findings in the left breast. No significant masses, calcifications, or other findings are seen in either breast. There has been no significant interval change. IMPRESSION: BENIGN There is no mammographic evidence of malignancy. A 1 year screening mammogram is recommended. This exam was interpreted at Station ID: [id number]. NOTE: For mammograms, a report in lay terms will be sent to the patient. Approximately 15% of breast malignancies will not be visualized mammographically. In the management of a palpable breast mass, a negative mammogram must not discourage biopsy of a clinically suspicious lesion. Electronically Signed By: Xander Ferrara M.D. [email or web address]:02/08/2021 16:33:38 ACR BI-RADS Category 2: Benign Finding(s) 3342F PARENCHYMAL PATTERN: (A) - The breast(s) demonstrate(s) scattered fibroglandular densities. BI-RADS CATEGORY: (2) - 2 RECOMMENDATION: (ANNUAL) - Recommend routine annual screening mammography. [id number] 1 year screening LATERALITY: (B)
== END 2021-02-08 12:26 | disposition home or self-care (01) ==
LOC: DI.N 12:25
DX: Z12.31 Encounter for screening mammogram for malignant neoplasm of breast (principal)

== ENCOUNTER 2021-03-25 08:00 | Outpatient (CLI) | payer MEDICAID | END 2021-03-25 23:59 | disposition home or self-care (01) | LOC: LAB.N 08:00 | PROVIDERS: ATTEND Family Medicine | DX: J06.9 Acute upper respiratory infection, unspecified (principal); R39.9 Unspecified symptoms and signs involving the genitourinary system; J02.9 Acute pharyngitis, unspecified; Z20.822 Contact with and (suspected) exposure to COVID-19 | CPT/HCPCS: 87070; 87077; 87086; 87181 ==

== ENCOUNTER 2021-06-01 08:00 | Outpatient (CLI) | payer MEDICARE, MEDICAID | END 2021-06-01 23:59 | disposition home or self-care (01) | LOC: LAB.N 08:00 | PROVIDERS: ATTEND Emergency Medicine | DX: N39.0 Urinary tract infection, site not specified (principal) | CPT/HCPCS: 87086; 87181 ==

== ENCOUNTER 2021-07-11 14:29 | Outpatient (CLI) | payer MEDICARE, MEDICAID | END 2021-07-11 14:30 | disposition short-term general hospital (02) | LOC: EMS 14:29 | DX: R29.898 Other symptoms and signs involving the musculoskeletal system (principal) | CPT/HCPCS: A0425; A0429 ==